=== PATIENT | female | born 1990 | race Caucasian/White ===

== ENCOUNTER 2019-01-09 21:43 | Emergency (ER) | payer MEDICAID ==
--- NOTE | 2019-01-10 00:32 | ERPHSYRPT ---
- History of Present Illness Time Seen by Provider: 01/10/19 00:29 Source: patient Exam Limitations: no limitations Patient Subjective Stated Complaint: PT C/O INTERMITTENT VAGINAL SPOTTING, DESCRIBED BRIGHT RED, ONLY SEEN WHEN WIPING WITH TOILET PAPER THAT STARTED TODAY. PT STATES SHE IS 18 WEEKS . PT ADDS SHE HAS BEEN HAVING GREEN VAGINAL DC X 1 WEEK. Triage Nursing Assessment: PINK/WARM/DRY, RESP EASY, A&OX4, STEADY GAIT, NO BLOOD VISUALIZED WHEN PT REMOVED CLOTHING TO CHANGE INTO GOWN. Physician History: 28-year-old white female 4 para 1 arrives with complaint of vaginal spotting and and some green vaginal discharge symptoms since today she denies abdominal pain. Past medical history denies. Past surgical history patient with abortions 2. Timing/Duration: today Severity: mild Modifying Factors: Improves With: nothing Associated Symptoms: other (vaginal spotting), No nausea, No vomiting, No abdominal pain, No shortness of breath, No heartburn, No diaphoresis, No cough, No chills, No chest pain, No fever, No headaches, No loss of appetite, No malaise, No rash, No syncope, No seizure, No weakness Allergies/Adverse Reactions: No Known Drug Allergies Allergy (Unverified 01/09/19 22:26) Home Medications: Vits W-Ca,Fe,FA(<1Mg) [] 1 tab PO DAILY 01/09/19 [History] Hx Tetanus, Diphtheria Vaccination/Date Given: No Hx Influenza Vaccination/Date Given: No Hx Pneumococcal Vaccination/Date Given: No Immunizations Up to Date: No - Review of Systems Constitutional: No Fever, No Chills Eyes: No Symptoms Ears, Nose, & Throat: No Symptoms Respiratory: No Cough, No Dyspnea Cardiac: No Chest Pain, No Edema, No Syncope Abdominal/Gastrointestinal: No Abdominal Pain, No Nausea, No Vomiting, No Diarrhea Genitourinary Symptoms: , Vaginal Bleeding Musculoskeletal: No Back Pain, No Neck Pain Skin: No Rash Neurological: No Dizziness, No Focal Weakness, No Sensory Changes Psychological: No Symptoms Endocrine: No Symptoms All Other Systems: Reviewed and Negative - Past Medical History Pertinent Past Medical History: No - Past Surgical History Past Surgical History: Yes Female Surgical History: Other Other Surgical History: X 2 - Social History Smoking Status: Current every day smoker Exposure to second hand smoke: Yes Drug Use: none Patient Lives Alone: No - Female History Hx Now: Yes Expected Date of Delivery: 06/14/19 - Nursing Vital Signs Nursing Vital Signs: Initial Vital Signs Temperature 98.6 F 01/09/19 22:34 Pulse Rate 80 01/09/19 22:34 Respiratory Rate 16 01/09/19 22:34 Blood Pressure 101/71 01/09/19 22:34 O2 Sat by Pulse Oximetry 99 01/09/19 22:34 Pain Scale Pain Intensity 3 - Physical Exam General Appearance: no apparent distress, alert Eye Exam: PERRL/EOMI, eyes nml inspection Ears, Nose, Throat Exam: normal ENT inspection, TMs normal, pharynx normal, moist mucous membranes Neck Exam: normal inspection, non-tender, supple, full range of motion Respiratory Exam: normal breath sounds, lungs clear, No respiratory distress Cardiovascular Exam: regular rate/rhythm, normal heart sounds, normal peripheral pulses, capillary refill <2 sec Gastrointestinal/Abdomen Exam: soft, normal bowel sounds, No tenderness, No mass Pelvic Exam: normal external exam, other (pelvic exam: Cervix closed, moderate amount white vaginal discharge, no blood noted, no cervical motion tenderness, no adnexal tenderness, uterus slightly enlarged, no uterine tenderness) Back Exam: normal inspection, normal range of motion, No CVA tenderness, No vertebral tenderness Extremity Exam: normal inspection, normal range of motion, pelvis stable Neurologic Exam: alert, oriented x 3, talent coordinator II-XII nml as tested Skin Exam: normal color, warm, dry, No rash SpO2 Interpretation: normal (96%) SpO2: 96 - Course Nursing assessment & vital signs reviewed: Yes - Radiology Ultrasound Exam OB Ultrasound: Other (discussed with nanotechnologist: Impression 8 weeks 3 day heart tone 144 placenta posterior cervix 3.3 cm estimated date of confinement June 12, 2019) Ordered Tests: Active Orders 24 hr Category Date Time Status Pelvic Exam Assist STAT Care 01/10/19 00:27 Active UA W/RFX UR CULTURE Stat Lab 01/10/19 01:31 Completed Wet Prep Stat Lab 01/10/19 02:13 Completed Lab/Rad Data: Laboratory Results 01/10/19 01/10/19 01/10/19 Range/Units 02:13 01:31 00:55 Urine Color STRAW (YELLOW) Urine Appearance CLEAR (CLEAR) Urine pH 7.0 (5-6) Ur Specific [place] 1.006 (1.005-1.025) Urine Protein NEGATIVE (Negative) Urine Ketones NEGATIVE (NEGATIVE) Urine Blood NEGATIVE (0-5) [place] Urine Nitrite NEGATIVE (NEGATIVE) Urine Bilirubin NEGATIVE (NEGATIVE) Urine Urobilinogen NEGATIVE (0-1) mg/dL Ur Leukocyte Esterase NEGATIVE (NEGATIVE) Urine WBC (Auto) NONE (0-5) /HPF Urine RBC (Auto) NONE (0-2) /HPF U Epithel Cells (Auto) NONE (FEW) /HPF Urine Bacteria (Auto) NONE SEEN (NEGATIVE) /HPF Urine Mucus (Auto) SLIGHT (NEGATIVE) /HPF Urine Culture Reflexed NO (NO) Urine Glucose NEGATIVE (NEGATIVE) mg/dL WBC (Wet Prep) Moderate RBC (Wet Prep) Few Epi Cells (Wet Prep) Moderate Bacteria (Wet Prep) Rare Clue Cells (Wet Prep) None Seen Trichomonas (Wet Prep) None Seen Budding Yeast (Wet Prp) None Seen ABO Group A Rh Factor POSITIVE Antibody Screen NEGATIVE (NEGATIVE) - Progress Progress: improved Progress Note: 01/10/19 02:02 Return home. Plenty of fluids. Nothing in your vagina. Follow-up with your family doctor. Return for acute distress or for severe symptoms. - Departure Departure Disposition: Home Clinical Impression: Vaginal bleeding Qualifiers: Weeks of gestation: 8 weeks Qualified Code(s): Z3A.08 - 8 weeks gestation of Condition: Fair Critical Care Time: No Referrals: GISELE GIORDANO [Primary Care Provider] -
[2019-01-10 01:50] LABS: Appearance CLEAR (CLEAR); Bilirubin NEGATIVE (NEGATIVE); Blood NEGATIVE Ery/ul (0-5); Glucose NEGATIVE (NEGATIVE); Ketones NEGATIVE (NEGATIVE); Leukocyte Esterase NEGATIVE (NEGATIVE); Mucus SLIGHT /HPF (NEGATIVE); Nitrite NEGATIVE (NEGATIVE); Protein,Urine Dip NEGATIVE (Negative); Specific Gravity 1.006 (1.005-1.025); Urobilinogen NEGATIVE mg/dL (0-1)
[2019-01-10 01:52] LABS: Bacteria NONE SEEN /HPF (NEGATIVE)
[2019-01-10 02:24] LABS: ABO TYPING A; Antibody Screen NEGATIVE (NEGATIVE); RH TYPING POSITIVE
[2019-01-10 02:30] LABS: Bacteria Rare; Red Blood Cells Few; Trichomonas None Seen; White Blood Cells Moderate; Yeast None Seen
[2019-01-10 02:32] LABS: Clue Cells None Seen
[2019-01-10 03:21] VITALS: BP 110/73; PULSE 72; O2SAT 97
[2019-01-10 03:55] LABS: CHLAMYDIA URINE NEGATIVE (NEGATIVE); GC URINE NEGATIVE (NEGATIVE)
--- NOTE | 2019-01-10 10:12 | XRAY ---
Indication: Spotting. Two-dimensional OB ultrasound performed. Comparison: December 28, 2018. Again single viable intrauterine with heart rate 144 bpm. Normal three-vessel cord. Visualized spine, kidneys, and bladder are unremarkable. Again posterior placenta today without abruption/previa. Cervical length is 3.2 cm. BPD measures 4.06 cm corresponding to 18 weeks 2 days. HC measures 14.74 cm corresponding to 17 weeks 6 days. AC measures 12.92 cm corresponding to 18 weeks 3 days. FL measures 2.51 cm corresponding to 17 weeks 4 days. WAQAR is 14.9 cm. Impression: Again single viable intrauterine with mean gestational age 18 weeks 0 days. Normal progression of . No new/acute findings. Comment: Preliminary report was given.
== END 2019-01-10 03:18 | disposition home or self-care (01) ==
LOC: ED 21:43
DX: O20.9 Hemorrhage in early pregnancy, unspecified (principal); Z3A.08 8 weeks gestation of pregnancy
CPT/HCPCS: 36415; 76805; 81001; 86850; 86900; 86901; 87210; 87491; 87591; 99284

== ENCOUNTER 2019-04-01 14:04 | Observation (INO) | payer OTHER ==
[2019-04-01 14:59] VITALS: BP 131/68; PULSE 80
[2019-04-01] MEDS ORDERED: Pepcid 20 MG PO SCH (15:15)
[2019-04-01 15:27] LABS: Appearance CLEAR (CLEAR); Bilirubin NEGATIVE (NEGATIVE); Blood NEGATIVE Ery/ul (0-5); Glucose NEGATIVE (NEGATIVE); Ketones NEGATIVE (NEGATIVE); Leukocyte Esterase NEGATIVE (NEGATIVE); Mucus SLIGHT /HPF (NEGATIVE); Nitrite NEGATIVE (NEGATIVE); Protein,Urine Dip NEGATIVE (Negative); Specific Gravity 1.004 (1.005-1.025); Urobilinogen NEGATIVE mg/dL (0-1)
[2019-04-01 16:43] LABS: Amphetamine,Urine NEGATIVE (NEGATIVE); Barbiturate,Urine NEGATIVE (NEGATIVE); Benzodiazepine,Urine NEGATIVE (NEGATIVE); Cocaine,Urine NEGATIVE (NEGATIVE); Methadone,Urine NEGATIVE (NEGATIVE); Opiate,Urine NEGATIVE (NEGATIVE); PCP,Urine NEGATIVE (NEGATIVE); THC,Urine NEGATIVE (NEGATIVE)
== END 2019-04-01 16:00 | disposition home or self-care (01) ==
LOC: OB 14:04
PROVIDERS: ADMIT Family Medicine; ATTEND Family Medicine
DX: Z34.83 Encounter for supervision of other normal pregnancy, third trimester (principal)
CPT/HCPCS: 80307; 81001; 81003; G0378; A9270-GY

== ENCOUNTER 2019-06-10 12:12 | Inpatient (IN) | payer OTHER ==
[2019-06-10] MEDS ORDERED: BRETHINE 1 MG/ML SQ PRN ×2 (12:26→12:30)
[2019-06-10] MEDS ORDERED: PITOCIN 30 UNITS/ LR 500 ML 30 UNITS/500 ML IV.SOLN. IV SCH (12:30)
[2019-06-10] MEDS ORDERED: Cervidil 10 MG VAG ONE (12:30)
[2019-06-10] MEDS ORDERED: XYLOCAINE 1% HCL 20 ML MDV IJ PRN ×2 (12:30→15:29)
[2019-06-10] MEDS ORDERED: Cervidil 10 MG VAG SCH (13:30)
[2019-06-10] MEDS: Lactated Ringers 1,000 ML IV SCH ×3 (15:18→21:15)
[2019-06-10] MEDS ORDERED: Zofran 4 MG/2 ML VIAL IV PRN (15:29)
[2019-06-10] MEDS ORDERED: Phenergan 25 MG INJ IV PRN (15:29)
[2019-06-10] MEDS ORDERED: PITOCIN 30 UNITS/ LR 500 ML 500 ML IV SCH (15:30)
[2019-06-10 16:05] LABS: Hematocrit 40.2 % (35-47); Hemoglobin 13.4 gm/dl (12.0-16.0); Mean Cell Volume 97.6 fl (78-100); Mean Corpuscular Hemoglobin 32.5 pg (26-32); Mean Corpuscular Hgb Concent. 33.3 g/dl (32-36); Mean Platelet Volume 10.3 fl (6-9.5); Platelet Count 232 K/mm3 (150-450); Red Blood Count 4.12 M/mm3 (4.1-5.4); Red Cell Distribution Width 12.7 % (11.5-14.0); White Blood Count 9.8 K/mm3 (4.0-10.5)
[2019-06-10 16:39] LABS: ANISOCYTOSIS 1+; Eosinophil 1 % (0.00-3.0); Lymphocytes 26 % (24-44); Monocyte 7 % (0.0-12.0); Neutrophils 66 % (36.0-66.0); Platelet Estimate NORMAL (NORMAL); Total Cells Counted 100
[2019-06-10 16:40] LABS: Granulocyte Absolute (ANC) 6.45 (1.4-6.9)
[2019-06-10 16:56] LABS: Amphetamine,Urine NEGATIVE (NEGATIVE); Barbiturate,Urine NEGATIVE (NEGATIVE); Benzodiazepine,Urine NEGATIVE (NEGATIVE); Cocaine,Urine NEGATIVE (NEGATIVE); Methadone,Urine NEGATIVE (NEGATIVE); Opiate,Urine NEGATIVE (NEGATIVE); PCP,Urine NEGATIVE (NEGATIVE); THC,Urine NEGATIVE (NEGATIVE)
[2019-06-10] MEDS ORDERED: Nubain 10 MG/ML IV ONE ×2 (17:45→20:05)
[2019-06-10] MEDS ORDERED: Dermoplast Spray TP PRN (23:55)
[2019-06-10] MEDS: TUCKS TP PRN (23:58)
[2019-06-11] MEDS ORDERED: TYLENOL EXTRA STRENGTH 500 MG PO PRN (00:16)
[2019-06-11] MEDS ORDERED: Anucort-HC SUPPOSITORY PR PRN (00:16)
[2019-06-11] MEDS ORDERED: CORTISONE 1% CREAM TP PRN (00:16)
[2019-06-11] MEDS: Mylicon 80MG PO PRN (00:46)
[2019-06-11 02:07] VITALS: O2SAT 99
[2019-06-11 04:56] LABS: Hematocrit 35.4 % (35-47); Hemoglobin 11.8 gm/dl (12.0-16.0); Mean Cell Volume 97.5 fl (78-100); Mean Corpuscular Hemoglobin 32.5 pg (26-32); Mean Corpuscular Hgb Concent. 33.3 g/dl (32-36); Mean Platelet Volume 10.3 fl (6-9.5); Platelet Count 260 K/mm3 (150-450); Red Blood Count 3.63 M/mm3 (4.1-5.4); Red Cell Distribution Width 12.5 % (11.5-14.0); White Blood Count 18.2 K/mm3 (4.0-10.5)
[2019-06-11] MEDS: Lactated Ringers 1,000 ML IV SCH (05:10)
[2019-06-11 05:56] LABS: BAND 4 % (0.0-2.0); Lymphocytes 4 % (24-44); Monocyte 5 % (0.0-12.0); Neutrophils 87 % (36.0-66.0); Platelet Estimate NORMAL (NORMAL); Total Cells Counted 100
[2019-06-11] MEDS: MOTRIN 400 MG PO PRN ×2 (08:25→18:34)
[2019-06-11] MEDS ORDERED: CEFAZOLIN 2 GM-D5W BAG** 2 GM/50 ML ML IV SCH (08:43)
[2019-06-11 08:46] LABS: INR 1.02 (0.8-3.0); PROTIME 11.5 SECONDS (9.95-12.35)
[2019-06-11 08:49] LABS: PTT 27.4 SECONDS (25.3-37.0)
[2019-06-11] MEDS ORDERED: PROTONIX 40 MG IV IV ONE (09:13)
[2019-06-11] MEDS: Colace 100 MG PO SCH ×2 (10:00→21:25)
[2019-06-11] MEDS: FERREX 150 PO SCH (10:00)
[2019-06-11] MEDS ORDERED: Pepcid 20 MG VIAL IV ONE (11:00)
[2019-06-11] MEDS ORDERED: Reglan 10 MG/2 ML IV ONE (11:00)
[2019-06-11] MEDS ORDERED: Lactated Ringers 1,500 ML IV ONE (11:00)
[2019-06-11] MEDS ORDERED: BICITRA 30 ML CUP PO ONE (11:00)
[2019-06-11] MEDS ORDERED: Sensorcaine 0.25% 10 ML ONE (11:02)
[2019-06-11] MEDS ORDERED: DIPRIVAN 200 MG/20 ML IV ONE (11:45)
[2019-06-11] MEDS ORDERED: SUBLIMAZE 100 MCG/2 ML ONE ×2 (11:45→12:56)
[2019-06-11] MEDS ORDERED: TORAdol 30 mg Injection ONE (11:45)
[2019-06-11] MEDS ORDERED: Zofran 4 MG/2 ML VIAL ONE (11:45)
[2019-06-11] MEDS ORDERED: Decadron 4 MG INJ ONE (11:45)
[2019-06-11] MEDS ORDERED: Lactated Ringers 1,000 ML IV ONE (12:36)
[2019-06-11] MEDS ORDERED: DEMEROL 50 MG IV PRN (13:55)
[2019-06-11] MEDS ORDERED: Phenergan 25 MG INJ IM PRN (13:55)
[2019-06-11] MEDS ORDERED: Dextrose 5%-Lr IV Solution 1000 ML 1,000 ML IV SCH (14:00)
--- NOTE | 2019-06-11 14:31 | OP ---
This report was amended on 06/15/19. SURGERY DATE: 06/11/19 SURGERY TIME: 1149 PREOPERATIVE DIAGNOSIS: 1. DESIRES PERMANENT STERILIZATION. POSTOPERATIVE DIAGNOSIS: 1. DESIRES PERMANENT STERILIZATION. PROCEDURE: 1. bilateral tubal ligation. SPECIMENS: Bilateral fallopian tube segments. ESTIMATED BLOOD LOSS: Minimal. SURGEON: Dr. Theron Petty. ANESTHESIA: General by Kilo Carrasco CRNA. DESCRIPTION OF PROCEDURE: Prior to the procedure, I did discuss with the patient the permanent nature of this procedure and that there were alternative methods that were not permanent. She was adamant that she understood that it was a permanent sterilization procedure and that she wanted to proceed. Of note, she did sign her tubal ligation paperwork in the office with Dr. Calderon, but she had extenuating circumstances with late entry to care and recently moving locally from [place] where she was homeless and it was felt as though it was more of an emergent situation to perform tubal ligation at this time since she declared that she wanted to have it done after delivery and again, understood the permanent nature of the procedure. I have also counseled her about the 1:300 failure rate and need to have an immediate evaluation if she were to think that she would become due to the risk of ectopic . She signed informed written consent, after out discussion and was taken to the operating room. Was prepped and draped in the usual sterile fashion after she underwent general anesthesia. 0.25% Marcaine was used to infiltrate the area of incision. Then, the infraumbilical incision was made by knife and carried down through the subcutaneous fat to the level of the fascia which was carefully opened with Metzenbaum scissors. The peritoneal cavity was opened and first, the left fallopian tube was grasped with a Celestino and followed down to its fimbrial end. Cautery was used to make a window in the mesosalpinx and a chromic tie was used to ligate the proximal and distal segment of the tube. The interceding tube segment was then dissected with Metzenbaum scissors and the free edges were cauterized on both sides. Good hemostasis was achieved. Next, the right fallopian tube was identified and with some difficulty due to the ovary and tube having some adhesions between the two, but it was carried down to its fimbrial edge, grasped with [place], and then cautery was used to make a window in the mesosalpinx. Proximal and distal tube segments likewise were ligated with chromic tie. The interceding tube segment was dissected free. Free edge of the tube was visible on both proximal and distal segments and was cauterized with electrocautery and both tube segments were sent for pathology testing. Next, the fascia was closed with 0 Vicryl in a running fashion. Good closure and good hemostasis were achieved. The subcutaneous fat was irrigated with warm sterile saline and finally, the skin layer was closed with 4-0 undyed Vicryl in a running subcuticular fashion. Steri-strips and occlusive dressing were placed over the incision and the patient was transferred to the recovery room in good condition.
[2019-06-11 14:47] LABS: Amourphous Crystal FEW /HPF (NEGATIVE); Appearance CLOUDY (CLEAR); Bacteria NONE SEEN /HPF (NEGATIVE); Bilirubin NEGATIVE (NEGATIVE); Blood NEGATIVE Ery/ul (0-5); Epithelial Cells RARE /HPF (FEW); Glucose NEGATIVE (NEGATIVE); Ketones NEGATIVE (NEGATIVE); Leukocyte Esterase NEGATIVE (NEGATIVE); Mucus SLIGHT /HPF (NEGATIVE); Nitrite NEGATIVE (NEGATIVE); Protein,Urine Dip 30 (Negative); Specific Gravity 1.021 (1.005-1.025); Urobilinogen NEGATIVE mg/dL (0-1)
[2019-06-11] MEDS: NORCO 5/325 MG PO PRN ×2 (15:49→21:24)
[2019-06-11] MEDS: TUCKS TP PRN (22:00)
[2019-06-12] MEDS: MOTRIN 400 MG PO PRN ×3 (01:04→23:03)
[2019-06-12] MEDS: NORCO 5/325 MG PO PRN ×4 (05:33→20:59)
[2019-06-12 06:17] LABS: Hematocrit 32.5 % (35-47); Hemoglobin 10.4 gm/dl (12.0-16.0); Mean Cell Volume 100.6 fl (78-100); Mean Platelet Volume 10.2 fl (6-9.5); Platelet Count 226 K/mm3 (150-450); Red Blood Count 3.23 M/mm3 (4.1-5.4); Red Cell Distribution Width 12.9 % (11.5-14.0); White Blood Count 11.5 K/mm3 (4.0-10.5)
[2019-06-12 06:29] LABS: Mean Corpuscular Hemoglobin 32.1 pg (26-32)
[2019-06-12] MEDS: FERREX 150 PO SCH (09:42)
[2019-06-12] MEDS: Colace 100 MG PO SCH ×2 (09:42→20:59)
[2019-06-12] MEDS: Mylicon 80MG PO PRN (17:14)
[2019-06-13] MEDS: NORCO 5/325 MG PO PRN ×3 (00:55→23:19)
[2019-06-13] MEDS: TUCKS TP PRN (00:56)
[2019-06-13 06:12] LABS: Hematocrit 33.9 % (35-47); Mean Cell Volume 100.9 fl (78-100); Mean Corpuscular Hemoglobin 32.7 pg (26-32); Mean Corpuscular Hgb Concent. 32.4 g/dl (32-36); Mean Platelet Volume 10.1 fl (6-9.5); Platelet Count 234 K/mm3 (150-450); Red Blood Count 3.36 M/mm3 (4.1-5.4); White Blood Count 10.1 K/mm3 (4.0-10.5)
[2019-06-13 07:22] LABS: BAND 1 % (0.0-2.0); Eosinophil 1 % (0.00-3.0); Lymphocytes 23 % (24-44); Monocyte 7 % (0.0-12.0); Neutrophils 68 % (36.0-66.0); Platelet Estimate NORMAL (NORMAL); Total Cells Counted 100
[2019-06-13] MEDS: MOTRIN 400 MG PO PRN ×2 (09:21→21:28)
[2019-06-13] MEDS: FERREX 150 PO SCH (09:21)
[2019-06-13] MEDS: Colace 100 MG PO SCH ×2 (09:21→21:28)
[2019-06-13] MEDS ORDERED: SENOKOT 8.6 MG PO PRN (13:32)
[2019-06-13] MEDS: Mylicon 80MG PO PRN (15:28)
[2019-06-14] MEDS: NORCO 5/325 MG PO PRN (05:58)
[2019-06-14 09:00] VITALS: BP 130/64; PULSE 70
--- NOTE | 2019-06-14 09:11 | PCM.DS ---
Discharge Summary Date of Admission: 06/10/19 12:12 Admitting Physician: GISELE GIORDANO Primary Care Provider: GISELE GIORDANO Allergies Allergies No Known Drug Allergies Allergy (Verified 06/10/19 17:56) Hospital Summary - Hospital Course Hospital Course: Pt came in 29 yo at 39+ wks for term IOL. She received cervadil with contractions; she did not require pitocin. She delivered a vigorous male vaginally over intact perineum. Placenta delivered spontaneously, intact. On her first PPD she had a BTL. She has complained of abdominal pain since the surgery and is currently wearing an abd binder. On her second PP day she started complaining of a mass protruding from her vagina when she was on the toilet. Sterile speculum exam by Dr. Palmer revealed cervix protruded somewhat with valsalva. Her bleeding is lessening. Sometimes feels lightheaded; her hgb was 11.0 yesterday. She is giving her baby up for adoption to a family member. Today pt complained of bilat calf pain; she is now getting a doppler of her legs bilaterally. - Vitals & Intake/Output Vital Signs: Vital Signs Temperature 97.8 F 06/14/19 08:00 Pulse Rate 70 06/14/19 08:00 Respiratory Rate 18 06/14/19 08:00 Blood Pressure 130/64 06/14/19 08:00 O2 Sat by Pulse Oximetry 99 06/10/19 23:45 Intake & Output: Intake & Output 06/11/19 06/12/19 06/13/19 06/14/19 11:59 11:59 11:59 11:59 Intake Total 2600 Balance 2600 Weight 85.275 kg - Lab Result Diagrams: 06/13/19 05:10 Micro Results-Entire Visit: Microbiology 06/11/19 12:00 Urine Culture - Final Urine, Catheterized NO GROWTH - Radiology Exams Ordered Rad Exams-Entire Visit: Radiology Procedures Category Date Time Status VENOUS BILATERAL EXTREMITY [US] Stat Exams 06/14/19 08:09 Ordered Discharge Exam General Appearance: no apparent distress, alert Neurologic Exam: oriented x 3, cooperative Eye Exam: eyes nml inspection Ears, Nose, Throat Exam: moist mucous membranes Neck Exam: normal inspection Respiratory Exam: normal breath sounds, lungs clear, No crackles/rales, No rhonchi, No wheezing Cardiovascular Exam: regular rate/rhythm, normal heart sounds, No murmur Gastrointestinal/Abdomen Exam: soft, normal bowel sounds, tenderness (near abd wound), other (fundus firm just inferior to umbilicus. wound is c/d/i, no erythema/exudate), No distention, No guarding, No rebound Extremity Exam: normal inspection, No pedal edema, No swelling Skin Exam: normal color, warm, dry, No rash Final Diagnosis/Problem List - Final Discharge Diagnosis/Problem (1) Vaginal delivery Current Visit: Yes Status: Acute Assessment & Plan: Will discharge pt to home today if u/s LE is neg for DVT. Code(s): O80 - ENCOUNTER FOR FULL-TERM UNCOMPLICATED DELIVERY (2) Leg pain, bilateral Current Visit: Yes Status: Acute Assessment & Plan: dopplers LE pending. Code(s): M79.604 - PAIN IN RIGHT LEG; M79.605 - PAIN IN LEFT LEG - Discharge Disposition: Home, Self-Care Condition: Good Prescriptions: No Action Vits W-Ca,Fe,FA(<1Mg) [] 1 tab PO DAILY Ranitidine HCl [Zantac] 150 mg PO BID Ranitidine HCl 150 mg PO BID Follow up with: GISELE GIORDANO [Primary Care Provider] - 1 Week
[2019-06-14] MEDS: Colace 100 MG PO SCH (09:54)
[2019-06-14] MEDS: MOTRIN 400 MG PO PRN (09:54)
[2019-06-14] MEDS: FERREX 150 PO SCH (09:54)
[2019-06-14] MEDS: TUCKS TP PRN (10:58)
--- NOTE | 2019-06-14 11:08 | XRAY ---
Exam: Bilateral lower extremity duplex Doppler venous ultrasound exam from 06/14/2019. Indication: 29-year-old female with bilateral calf pain. Technique: Mena scale images, color flow images, and Doppler tracings were obtained within the major deep veins as well as the greater saphenous vein of both lower extremities. Findings: Normal spontaneous and phasic waveforms and Doppler signal augmentation were seen throughout both lower extremity deep veins. Normal color flow, Doppler signal augmentation, and compressibility were seen within community representative sections of the common femoral veins, proximal, mid, and distal superficial femoral veins, popliteal veins, and distal posterior tibial veins bilaterally. Nor did I see any abnormality within the profunda femoral veins bilaterally. I saw no evidence of echogenic clot within the deep veins. Normal color flow and Doppler signal augmentation was seen within the visualized greater saphenous veins bilaterally. Impression: 1. No evidence of deep venous thrombosis is seen within either lower extremity.
== END 2019-06-14 11:45 | disposition home or self-care (01) | DRG 798 ==
LOC: OBSVTOIN 12:12 → OB 12:12 → MED SURG 06-11 02:08
PROVIDERS: ADMIT Family Medicine; ATTEND Family Medicine
PROC: 10E0XZZ Delivery of Products of Conception, External Approach (ICD-10-PCS; principal; 2019-06-10)
PROC: 0UB70ZZ Excision of Bilateral Fallopian Tubes, Open Approach (ICD-10-PCS; 2019-06-11)
DX: O80 Encounter for full-term uncomplicated delivery (principal); Z37.0 Single live birth; Z3A.39 39 weeks gestation of pregnancy; Z30.2 Encounter for sterilization; M79.662 Pain in left lower leg; M79.661 Pain in right lower leg; N81.2 Incomplete uterovaginal prolapse
CPT/HCPCS: 36415; 80307; 81001; 81003; 85025; 85027; 85610; 85730; 87086; 93970; G0378; J0690; J1100; J1885; J2300; J2405; J2590; J2704; J3010; L0625; A9270-GY